=== PATIENT | female | born 1935 | race Caucasian/White ===

== ENCOUNTER 2017-04-29 12:24 | Inpatient (IN) | payer MEDICARE, OTHER ==
[~2017-04-29] VITALS: Ht 170.2 cm; Wt 72.3 kg
[~2017-04-29 12:24] MED LIST: ASPI-1071 PO; ATOR10TA70 PO; CHLO25TA11 PO; LEVO88TA2 PO; LOSA50TA37 PO
[2017-04-29] MEDS ORDERED: metoprolol tartrate 50mg tablet PO ONE (13:10)
[2017-04-29 13:17] LABS: BASOPHILS # (AUTO) 0.1 X10'3 (0-0.2); BASOPHILS % (AUTO) 1.2 % (0-1); EOSINOPHILS # (AUTO) 0.3 X10'3 (0-0.9); HEMATOCRIT 38.4 % (35.0-45.0); HEMOGLOBIN 13.3 g/dl (12.0-16.0); LYMPHOCYTES # (AUTO) 0.9 X10'3 (1.1-4.8); LYMPHOCYTES % (AUTO) 14.3 % (21-51); MEAN CORPUSCULAR HEMOGLOBIN 31.6 PG (27.0-31.0); MEAN CORPUSCULAR HGB CONC 34.5 % (33.0-36.5); MEAN CORPUSCULAR VOLUME 91.6 FL (78-98); MEAN PLATELET VOLUME 9.5 FL (7.4-10.4); MONOCYTES # (AUTO) 0.5 X10'3 (0-0.9); MONOCYTES % (AUTO) 8.5 % (2-12); NEUTROPHILS # (AUTO) 4.6 X10'3 (1.8-7.7); PLATELET COUNT 235 X10'3 (140-440); RED BLOOD COUNT 4.19 X10'6 (4.20-5.60); RED CELL DISTRIBUTION WIDTH 12.4 % (11.5-14.5); WHITE BLOOD COUNT 6.4 X10'3 (4.5-11.0)
[2017-04-29 13:23] LABS: PARTIAL THROMBOPLASTIN TIME 26 SECONDS (22-32)
[2017-04-29] MEDS ORDERED: normal saline 1000ml 1,000 ML IV ONE (13:33)
[2017-04-29 13:34] LABS: ALANINE AMINOTRANSFERASE 29 U/L (12-78); ALBUMIN 4.4 G/DL (3.4-5.0); ALBUMIN/GLOBULIN RATIO 1.2 (1.1-1.5); ALKALINE PHOSPHATASE 61 IU/L (46-116); ANION GAP 9 (8-16); ASPARTATE AMINO TRANSFERASE 19 U/L (10-37); BILIRUBIN,TOTAL 0.5 MG/DL (0.1-1.0); BLOOD UREA NITROGEN 16 MG/DL (7-18); CALCIUM 9.2 MG/DL (8.5-10.1); CHLORIDE 103 MMOL/L (99-107); GLUCOSE 100 MG/DL (70-104); LIPASE 261 U/L (73-393); SODIUM 139 MMOL/L (135-145); TOTAL CARBON DIOXIDE 27.4 MMOL/L (24-32); eGFR 53 ML/MIN
[2017-04-29] MEDS ORDERED: aspirin 81mg tab.chew PO ONE (13:35)
[2017-04-29] MEDS ORDERED: nitroGLYCERIN 0.4mg/hour patch TD ONE (13:35)
[2017-04-29 14:13] LABS: C-REACTIVE PROTEIN < 0.05 MG/DL (0.0-0.5)
[2017-04-29] MEDS ORDERED: acetaminophen 325mg tablet PO PRN (14:15)
[2017-04-29] MEDS ORDERED: mag hydrox/Alum hydrox/simeth 30ml oral suspension PO PRN (14:15)
[2017-04-29] MEDS ORDERED: ondansetron/PF 4mg/2ml inj IV PRN (14:15)
[2017-04-29] MEDS ORDERED: magnesium hydroxide 30ml (MOM) UD suspension PO PRN (14:15)
[2017-04-29 16:00] VITALS: BP 176/63
[2017-04-29] MEDS ORDERED: aminophylline 250mg/10ml inj. IV PRN (16:40)
[2017-04-29] MEDS ORDERED: metoprolol tartrate 1mg/ml inj IV PRN (16:40)
[2017-04-29] MEDS ORDERED: nitroGLYCERIN 0.4mg SUBLingual tab SL PRN (16:40)
[2017-04-29] MEDS ORDERED: regadenoson 0.4mg/5ml syringe IV ONE (16:40)
[2017-04-29 17:44] VITALS: BP 152/58
[2017-04-29] MEDS: enoxaparin 40mg/0.4ml syringe SUBCUT SCH (17:44)
[2017-04-29] MEDS: amLODIPine 5mg tablet PO SCH (17:44)
[2017-04-29 19:00] VITALS: BP 137/54
[2017-04-29 23:00] VITALS: BP 115/41
[2017-04-30] VITALS (15 sets, daily range): BP systolic 111–149; BP diastolic 38–69
[2017-04-30] MEDS: acetaminophen 325mg tablet PO PRN ×2 (00:28→21:57)
[2017-04-30] MEDS: diphenhydrAMINE 25mg capsule PO PRN ×2 (00:28→21:58)
[2017-04-30 01:50] LABS: ALANINE AMINOTRANSFERASE 26 U/L (12-78); ALBUMIN 3.6 G/DL (3.4-5.0); ALBUMIN/GLOBULIN RATIO 1.1 (1.1-1.5); ALKALINE PHOSPHATASE 53 IU/L (46-116); ANION GAP 7 (8-16); ASPARTATE AMINO TRANSFERASE 19 U/L (10-37); BILIRUBIN,TOTAL 0.3 MG/DL (0.1-1.0); BLOOD UREA NITROGEN 21 MG/DL (7-18); BUN/CREATININE RATIO 19.1 (6.6-38.0); CALCIUM 8.7 MG/DL (8.5-10.1); CHLORIDE 106 MMOL/L (99-107); CHOL/HDL RATIO 3.1 (0.00-4.99); CHOLESTEROL 185 MG/DL (0-200); GLUCOSE 91 MG/DL (70-104); HDL CHOLESTEROL 59 MG/DL (35-60); LDL CHOLESTEROL 107 MG/DL (50-100); POTASSIUM 4.2 MMOL/L (3.5-5.1); SODIUM 140 MMOL/L (135-145); TOTAL CARBON DIOXIDE 26.8 MMOL/L (24-32); TOTAL PROTEIN 6.8 G/DL (6.4-8.2); TRIGLYCERIDES 97 MG/DL (20-135); eGFR 48 ML/MIN
[2017-04-30 02:28] LABS: BASOPHILS # (AUTO) 0.2 X10'3 (0-0.2); BASOPHILS % (AUTO) 2.3 % (0-1); EOSINOPHILS # (AUTO) 0.4 X10'3 (0-0.9); EOSINOPHILS % (AUTO) 6.3 % (0-6); HEMATOCRIT 34.7 % (35.0-45.0); HEMOGLOBIN 11.7 g/dl (12.0-16.0); LYMPHOCYTES % (AUTO) 28.6 % (21-51); MEAN CORPUSCULAR HEMOGLOBIN 31.2 PG (27.0-31.0); MEAN CORPUSCULAR HGB CONC 33.8 % (33.0-36.5); MEAN CORPUSCULAR VOLUME 92.4 FL (78-98); MEAN PLATELET VOLUME 10.8 FL (7.4-10.4); MONOCYTES # (AUTO) 0.7 X10'3 (0-0.9); MONOCYTES % (AUTO) 10.4 % (2-12); NEUTROPHILS # (AUTO) 3.7 X10'3 (1.8-7.7); NEUTROPHILS % (AUTO) 52.4 % (42-75); PLATELET COUNT 206 X10'3 (140-440); RED BLOOD COUNT 3.76 X10'6 (4.20-5.60); RED CELL DISTRIBUTION WIDTH 13.4 % (11.5-14.5)
[2017-04-30] MEDS: aspirin 81mg tablet.DR PO SCH (07:42)
[2017-04-30] MEDS: enoxaparin 40mg/0.4ml syringe SUBCUT SCH (07:52)
[2017-04-30] MEDS ORDERED: levoTHYROXINE 88mcg tablet PO SCH (08:00)
[2017-04-30] MEDS: losartan 50mg tablet PO SCH ×2 (08:00→20:32)
[2017-04-30] MEDS ORDERED: aminophylline inj. 0 ML IV ONE (08:45)
[2017-04-30] MEDS ORDERED: regadenoson 0.4mg/5ml syringe IV ONE (08:45)
[2017-04-30] MEDS: amLODIPine 5mg tablet PO SCH (10:30)
[2017-05-01 03:00] VITALS: BP 140/54
[2017-05-01 06:00] VITALS: BP 127/41
[2017-05-01 06:21] LABS: BASOPHILS # (AUTO) 0.1 X10'3 (0-0.2); BASOPHILS % (AUTO) 1.2 % (0-1); EOSINOPHILS # (AUTO) 0.5 X10'3 (0-0.9); EOSINOPHILS % (AUTO) 8.6 % (0-6); HEMATOCRIT 34.4 % (35.0-45.0); HEMOGLOBIN 11.8 g/dl (12.0-16.0); LYMPHOCYTES # (AUTO) 1.6 X10'3 (1.1-4.8); LYMPHOCYTES % (AUTO) 26.4 % (21-51); MEAN CORPUSCULAR HEMOGLOBIN 31.3 PG (27.0-31.0); MEAN CORPUSCULAR HGB CONC 34.2 % (33.0-36.5); MEAN CORPUSCULAR VOLUME 91.3 FL (78-98); MEAN PLATELET VOLUME 9.9 FL (7.4-10.4); MONOCYTES # (AUTO) 0.7 X10'3 (0-0.9); MONOCYTES % (AUTO) 11.9 % (2-12); NEUTROPHILS # (AUTO) 3.1 X10'3 (1.8-7.7); NEUTROPHILS % (AUTO) 51.9 % (42-75); PLATELET COUNT 207 X10'3 (140-440); RED BLOOD COUNT 3.76 X10'6 (4.20-5.60); RED CELL DISTRIBUTION WIDTH 13.3 % (11.5-14.5)
[2017-05-01 06:45] LABS: ALANINE AMINOTRANSFERASE 22 U/L (12-78); ALBUMIN 3.3 G/DL (3.4-5.0); ALKALINE PHOSPHATASE 45 IU/L (46-116); ANION GAP 10 (8-16); BILIRUBIN,TOTAL 0.4 MG/DL (0.1-1.0); BLOOD UREA NITROGEN 20 MG/DL (7-18); CALCIUM 8.9 MG/DL (8.5-10.1); CHLORIDE 106 MMOL/L (99-107); GLUCOSE 105 MG/DL (70-104); SODIUM 144 MMOL/L (135-145); TOTAL CARBON DIOXIDE 28.1 MMOL/L (24-32); TOTAL PROTEIN 6.7 G/DL (6.4-8.2); eGFR 53 ML/MIN
[2017-05-01 06:47] LABS: ASPARTATE AMINO TRANSFERASE 25 U/L (10-37); POTASSIUM 4.2 MMOL/L (3.5-5.1)
[2017-05-01] MEDS: aspirin 81mg tablet.DR PO SCH (07:37)
[2017-05-01] MEDS: amLODIPine 5mg tablet PO SCH (07:43)
[2017-05-01] MEDS: losartan 50mg tablet PO SCH (07:44)
[2017-05-01] MEDS: enoxaparin 40mg/0.4ml syringe SUBCUT SCH (07:49)
[2017-05-01] MEDS ORDERED: levoTHYROXINE 25mcg tablet PO SCH (08:00)
[2017-05-01] MEDS ORDERED: LEVO25TA7 PO (10:03)
[2017-05-01] MEDS ORDERED: AMLO5TAB16 PO (10:03)
== END 2017-05-01 12:18 | disposition home or self-care (01) | DRG 305 ==
LOC: ER 12:24 → ED HOLD 14:15 → EDBEDREQ 15:23 → PCU 3S 16:01
PROVIDERS: ADMIT Family Medicine; ATTEND Family Medicine
PROC: 4A02XM4 Measurement of Cardiac Total Activity, External Approach (ICD-10-PCS; principal; 2017-04-30)
PROC: 3E073KZ Introduction of Other Diagnostic Substance into Coronary Artery, Percutaneous Approach (ICD-10-PCS; 2017-04-30)
DX: I16.1 Hypertensive emergency (principal); E03.9 Hypothyroidism, unspecified; E78.5 Hyperlipidemia, unspecified; N18.9 Chronic kidney disease, unspecified; I12.9 Hypertensive chronic kidney disease with stage 1 through stage 4 chronic kidney disease, or unspecified chronic kidney disease; Z90.710 Acquired absence of both cervix and uterus; Z88.8 Allergy status to other drugs, medicaments and biological substances; Z79.82 Long term (current) use of aspirin; Z79.899 Other long term (current) drug therapy; Z80.6 Family history of leukemia; Z82.49 Family history of ischemic heart disease and other diseases of the circulatory system; Z80.42 Family history of malignant neoplasm of prostate
CPT/HCPCS: 36415; 71045; 76536; 78452; 80053; 80061; 83690; 83735; 83880; 84439; 84443; 84484; 85025; 85610; 85651; 85730; 86140; 87070; 93005; 93017; 93306; 99285; A6250; A9500; J0280; J1650; J7030; Q0163